=== PATIENT | female | born 1930 | race Caucasian/White ===

== ENCOUNTER 2016-09-07 05:35 | Inpatient (IN) | payer OTHER ==
[~2016-09-07] VITALS: Ht 165.1 cm; Wt 67.3 kg
[~2016-09-07 05:35] MED LIST: AMITRIPTYLINE H25 MG PO; ANT12.5 PO; BYSTOLIC10 M1 PO; COMBIGAN5 ML OP; IPRATROPIUM BROM3 M2 HHN; LAC PO; LEVAQUIN750 MG PO; LEVOTHYROXIN0.075 M2 PO; LEVOTHYROXINE0.05 M2 PO; LORAZEPAM0.5 MG PO; PATADAY2.5 ML OU; PRI20 PO; SIMVASTATIN20 M1 PO; ZITHROMAX Z-PA250 M2 PO
[2016-09-07 06:22] LABS: PLATELET COUNT 206 x10^3mcL (130-400)
[2016-09-07 06:31] LABS: ALBUMIN 4.3 g/dL (3.4-5.0); ALKALINE PHOSPHATASE 82 U/L (46-116); ALT/SGPT 20 U/L (14-59); AST/SGOT 19 U/L (15-37); BILIRUBIN TOTAL 0.6 mg/dL (0.20-1.00); CARBON DIOXIDE 29.1 mmol/L (21-32); CHLORIDE SERUM 100 mmol/L (98-107); CREATININE SERUM 1.1 mg/dL (0.6-1.0); GLUCOSE SERUM 154 mg/dL (74-106); LIPASE 321 IU/L (73-393); POTASSIUM SERUM 3.9 mmol/L (3.5-5.1); SODIUM SERUM 138 mmol/L (136-145); TOTAL PROTEIN, SERUM 7.8 g/dL (6.4-8.2)
[2016-09-07 07:02] LABS: RED CELL DISTRIBUTION WIDTH 14.8 % (11.5-14.5)
[2016-09-07 07:51] LABS: microscopic required? NO
[2016-09-07 08:02] LABS: urine erythrocyte NEGATIVE (NEGATIVE)
[2016-09-07 08:04] LABS: BAND NEUTROPHIL 12 % (0-10); MONOCYTE 2 % (0-7); SEGMENTED NEUTROPHILS 84 % (37-75)
[2016-09-07 08:05] LABS: ATYPICAL LYMPH 1 %; BASOPHIL 0 % (0-2); PLATELET MORPHOLOGY PLATELETS NORMAL; rbc morphology (normal/abnorm) NORMAL (NORMAL)
[2016-09-07] MEDS ORDERED: SYNTHROID0.075 MG PO (09:18)
[2016-09-07] MEDS ORDERED: LORAZEPAM0.5 MG PO (09:19)
[2016-09-07] MEDS ORDERED: SIMVASTATIN20 M1 PO (09:19)
[2016-09-07] MEDS ORDERED: AMITRIPTYLINE H25 MG PO (09:19)
[2016-09-07 10:18] LABS: MAGNESIUM 2.1 mg/dL (1.8-2.4); PHOSPHOROUS 3.4 mg/dL (2.5-4.9)
[2016-09-07 10:19] LABS: CHOLESTEROL/HDL RATIO 2.7
[2016-09-07 10:28] LABS: FREE T4 1.04 ng/dL (0.76-1.46); FREE THYROXINE INDEX 2.9 ug/dL (1.4-4.5); T4(THYROXINE) 9.2 ug/dL (4.7-13.3)
[2016-09-07 11:33] LABS: T3 TOTAL 0.94 ng/mL
[2016-09-07 12:04] VITALS: BP 134/68
[2016-09-07 13:46] VITALS: BP 138/67
[2016-09-07 17:14] VITALS: BP 116/48
[2016-09-07 19:30] VITALS: BP 107/53
[2016-09-07 21:00] VITALS: BP 116/48
[2016-09-08 06:05] VITALS: BP 101/56
[2016-09-08 06:15] LABS: PLATELET COUNT 163 x10^3mcL (130-400); RED CELL DISTRIBUTION WIDTH 14.4 % (11.5-14.5)
[2016-09-08 06:28] LABS: CALCIUM 8.2 mg/dL (8.5-10.1); CARBON DIOXIDE 26.9 mmol/L (21-32); CHLORIDE SERUM 108 mmol/L (98-107); GLUCOSE SERUM 102 mg/dL (74-106); POTASSIUM SERUM 3.9 mmol/L (3.5-5.1); SODIUM SERUM 143 mmol/L (136-145)
[2016-09-08 07:34] LABS: BAND NEUTROPHIL 3 % (0-10); MONOCYTE 4 % (0-7); SEGMENTED NEUTROPHILS 91 % (37-75); rbc morphology (normal/abnorm) NORMAL (NORMAL)
[2016-09-08 10:43] VITALS: BP 103/52
[2016-09-08 13:48] VITALS: BP 109/88
[2016-09-08 17:18] VITALS: BP 98/48
[2016-09-08 19:20] VITALS: BP 108/54
[2016-09-09 06:02] VITALS: BP 100/58
[2016-09-09 06:19] LABS: BASOPHIL % 0.2 % (0-2); PLATELET COUNT 135 x10^3mcL (130-400); RED CELL DISTRIBUTION WIDTH 14.4 % (11.5-14.5)
[2016-09-09 06:27] LABS: CALCIUM 8.2 mg/dL (8.5-10.1); CARBON DIOXIDE 23.4 mmol/L (21-32); CHLORIDE SERUM 109 mmol/L (98-107); GLUCOSE SERUM 91 mg/dL (74-106); POTASSIUM SERUM 3.5 mmol/L (3.5-5.1); SODIUM SERUM 140 mmol/L (136-145)
[2016-09-09 11:25] VITALS: BP 153/60
[2016-09-09 14:02] VITALS: BP 126/52
[2016-09-09 18:10] VITALS: BP 185/65
[2016-09-09 18:25] VITALS: BP 144/67
[2016-09-09 21:11] VITALS: BP 149/82
[2016-09-10 06:19] VITALS: BP 142/80
[2016-09-10 06:49] LABS: BASOPHIL % 0.4 % (0-2); PLATELET COUNT 154 x10^3mcL (130-400)
[2016-09-10 06:51] LABS: RED CELL DISTRIBUTION WIDTH 14.9 % (11.5-14.5)
[2016-09-10 07:01] LABS: CALCIUM 8.4 mg/dL (8.5-10.1); CARBON DIOXIDE 27.5 mmol/L (21-32); CHLORIDE SERUM 106 mmol/L (98-107); CREATININE SERUM 0.9 mg/dL (0.6-1.0); GLUCOSE SERUM 104 mg/dL (74-106); POTASSIUM SERUM 3.5 mmol/L (3.5-5.1); SODIUM SERUM 139 mmol/L (136-145)
[2016-09-10 09:49] VITALS: BP 142/80
[2016-09-10 10:03] VITALS: BP 159/75
[2016-09-10 13:03] VITALS: BP 158/65
[2016-09-10] MEDS ORDERED: BAY PO (14:13)
[2016-09-10] MEDS ORDERED: PROTONIX40 MG/Pac1 PO (14:13)
[2016-09-10] MEDS ORDERED: THERA TABS1 TAB PO (14:13)
[2016-09-10 16:05] VITALS: BP 158/65
== END 2016-09-10 16:47 | disposition home health service (06) | DRG 377 ==
LOC: ED 05:35 → DU 09:17
PROVIDERS: Emergency Medicine; Internal Medicine; ADMIT Family Medicine
PROC: 0DJ08ZZ Inspection of Upper Intestinal Tract, Via Natural or Artificial Opening Endoscopic (ICD-10-PCS; principal; 2016-09-08 12:30)
DX: K29.01 Acute gastritis with bleeding (principal); N17.0 Acute kidney failure with tubular necrosis; D68.69 Other thrombophilia; E11.9 Type 2 diabetes mellitus without complications; E86.0 Dehydration; F41.1 Generalized anxiety disorder; F32.9 Major depressive disorder, single episode, unspecified; K20.9 Esophagitis, unspecified; G50.0 Trigeminal neuralgia; E03.9 Hypothyroidism, unspecified; E78.5 Hyperlipidemia, unspecified; J44.9 Chronic obstructive pulmonary disease, unspecified; G30.9 Alzheimer's disease, unspecified; F02.80 Dementia in other diseases classified elsewhere, unspecified severity, without behavioral disturbance, psychotic disturbance, mood disturbance, and anxiety; H40.9 Unspecified glaucoma; I10 Essential (primary) hypertension; Z66 Do not resuscitate; Z90.5 Acquired absence of kidney; Z68.24 Body mass index [BMI] 24.0-24.9, adult; Z85.828 Personal history of other malignant neoplasm of skin
CPT/HCPCS: 43235; 83880; 84439; 94150; 97110-GP; 97116-GP; 97530-GP; J0696; J1200; J1610; J2250; J2310; J2405; J3010; J3490; J7030; J7620; Q0092

== ENCOUNTER 2018-04-15 10:32 | Emergency (ER) | payer OTHER ==
[~2018-04-15] VITALS: Ht 162.6 cm; Wt 62.1 kg
[~2018-04-15 10:32] MED LIST changes: +BAY PO; +PROTONIX40 MG/Pac1 PO; +SYNTHROID0.075 MG PO; +THERA TABS1 TAB PO
[2018-04-15 10:42] VITALS: Ht 162.6 cm; Wt 62.1 kg
[2018-04-15 11:25] LABS: BASOPHIL % 0.6 % (0-2); PLATELET COUNT 230 x10^3mcL (130-400); RED CELL DISTRIBUTION WIDTH 13.9 % (11.5-14.5)
[2018-04-15 11:47] LABS: CALCIUM 9.5 mg/dL (8.5-10.1); CARBON DIOXIDE 30.1 mmol/L (21-32); CHLORIDE SERUM 103 mmol/L (98-107); CREATININE SERUM 1.1 mg/dL (0.6-1.0); GLUCOSE SERUM 115 mg/dL (74-106); POTASSIUM SERUM 4.1 mmol/L (3.5-5.1); SODIUM SERUM 142 mmol/L (136-145)
[2018-04-15 11:50] LABS: ALBUMIN 3.7 g/dL (3.4-5.0); ALKALINE PHOSPHATASE 63 U/L (46-116); ALT/SGPT 22 U/L (14-59); AST/SGOT 20 U/L (15-37); BILIRUBIN TOTAL 0.55 mg/dL (0.20-1.00); CHOLESTEROL 159 mg/dL (<200); HDL CHOLESTEROL 56 mg/dL (40-60); MAGNESIUM 2.3 mg/dL (1.8-2.4); TOTAL PROTEIN, SERUM 6.9 g/dL (6.4-8.2)
[2018-04-15 13:06] VITALS: BP 198/83
== END 2018-04-15 13:06 | disposition home or self-care (01) ==
LOC: ED 10:32
PROVIDERS: Emergency Medicine
DX: I10 Essential (primary) hypertension (principal); R51 Headache; M54.12 Radiculopathy, cervical region; G47.00 Insomnia, unspecified; E78.00 Pure hypercholesterolemia, unspecified; H92.03 Otalgia, bilateral; Z88.8 Allergy status to other drugs, medicaments and biological substances
CPT/HCPCS: 36415; Q0092